=== PATIENT | female | born 1955 | race African-American/Black ===

== ENCOUNTER 2020-05-08 08:51 | Emergency (ER) | payer OTHER ==
[~2020-05-08] VITALS: Ht 167.6 cm; Wt 41.3 kg
--- NOTE | 2020-05-08 08:55 | NUR ---
RT Pt brought into ER by paramedics trached (Shiley 6 cuffed) on mechanical ventilation, pt transferred over to hospital vent with noted settings. Pt is awake and alert, no SOB or respiratory distress noted. BVM and spare trach by bedside. Addendum: 05/08/20 at 0947 by DAISY BRISCOE RT Amended: Links added.
--- NOTE | 2020-05-08 09:17 | NUR ---
DIGNA FROM [facility]. TO ER BED 5. AAOX3. ON VENT AND TRACH. BROUGHT IN FOR A MID STERNAL CHEST PAIN RADITING TO BACK 5/10 SINCE LAST NIGHT. PT IS ALSO C/O FEELING SOB AND STATES THAT "I DONT FEEL AIR COMING IN". PT IS NOTED ANXIOUS. PT IS ON VENT W/ SETTING AC20 VT 450 O2 40% AND +5PEEP. SHILEY TRACH. PT PLACED ON MONITOR. MD AT BEDSIDE FOR EVAL. ORDERS RECEIVED NOTED AND CARRIED OUT. IV LINE EXTABLISHED R HAND 20G. BLOOD DRAWN AND GIVEN TO PUBLIC RELATIONS SENIOR ASSOCIATE AT BEDSIDE. EKG DONE AT BEDSIDE.
[2020-05-08 09:33] LABS: CALCIUM, SERUM 9.5 mg/dL (8.5-10.1); CARBON DIOXIDE 33 mmol/L (21-32); CHLORIDE 103 mmol/L (98-107); CREATININE 0.5 mg/dL (0.6-1.3); GLUCOSE 86 mg/dL (74-106); POTASSIUM 4.7 mmol/L (3.5-5.1); SODIUM SERUM 143 mmol/L (136-145); UREA NITROGEN, BLOOD 14 mg/dL (7-18)
[2020-05-08] MEDS ORDERED: LORAZEPAM INJ 2 MG/ML VIAL ONE (09:38)
[2020-05-08] MEDS: LORAZEPAM INJ 2 MG/ML VIAL IV ONE (09:45)
--- NOTE | 2020-05-08 09:48 | NUR ---
[facility] [phone] THEY ONLY DO ABULATORY SO CALL [facility] [phone] TO GET PPG NUMBER
[2020-05-08 09:52] LABS: BASOPHILS % (AUTO) 0.5 % (0.0-2.0); EOSINOPHILS % (AUTO) 4.9 % (0.0-6.0); HEMATOCRIT 34 % (33-45); HEMOGLOBIN 9.9 g/dL (11.5-14.8); MEAN CORPUSCULAR HGB CONC 29 g/dl (31.0-36.0); MEAN CORPUSCULAR VOLUME 79 fL (82-100); MONOCYTES # (AUTO) 1.3 /CMM (0.1-1.30); MONOCYTES % (AUTO) 13.4 % (2.0-12.0); NEUTROPHILS # (AUTO) 6.6 /CMM (1.8-8.9); NEUTROPHILS % (AUTO) 70.2 % (43.0-81.0); PLATELET COUNT (AUTO) 285 /CMM (150-450); RED BLOOD CELL COUNT(AUTO) 4.34 MIL/uL (4.0-5.2); WHITE BLOOD COUNT (AUTO) 9.4 K/uL (4.3-11.0)
--- NOTE | 2020-05-08 10:06 | NUR ---
[facility] [phone]
--- NOTE | 2020-05-08 10:29 | NUR ---
CALLED [facility] FOR HELP
--- NOTE | 2020-05-08 10:38 | NUR ---
RN [facility] NOTIFED THAT PT IS GOING BACK TO THE FACILITY.
--- NOTE | 2020-05-08 11:04 | NUR ---
CALLED [facility] FOR TRANSPORT D[facility]N ETA IS 1330 WITH RT.
--- NOTE | 2020-05-08 11:44 | NUR ---
PT IN BED SLEEPING COMFORTABLE. NAD NOTED
--- NOTE | 2020-05-08 13:58 | NUR ---
[facility]ACY 39 AT BEDSIDE FOR TRANSPORT TO [facility]. REPORT GIVEN TO AMBULANCE STAFF AND RT.
--- NOTE | 2020-05-08 14:03 | NUR ---
Patient discharged to home in stable condition. Written and verbal after care instructions given. Patient verbalizes understanding of instruction.IV removed. Catheter intact and site benign. Pressure and 4x4 applied to site. No bleeding noted.
[2020-05-08 14:22] VITALS: BP 118/82
== END 2020-05-08 14:05 | disposition home or self-care (01) ==
LOC: ER 08:54
DX: R07.89 Other chest pain (principal); I10 Essential (primary) hypertension; I48.91 Unspecified atrial fibrillation; E78.5 Hyperlipidemia, unspecified; J44.9 Chronic obstructive pulmonary disease, unspecified; E11.9 Type 2 diabetes mellitus without complications; F41.9 Anxiety disorder, unspecified; F32.9 Major depressive disorder, single episode, unspecified; D64.9 Anemia, unspecified; Z88.5 Allergy status to narcotic agent; Z88.6 Allergy status to analgesic agent; Z88.8 Allergy status to other drugs, medicaments and biological substances
CPT/HCPCS: 31720; 36415; 71045; 80048; 84484; 85025; 93005 ×2; 96374; 99285; J2060